=== PATIENT | female | born 1945 | race Caucasian/White ===

== ENCOUNTER 2016-08-14 11:35 | Outpatient (CLI) | payer MEDICARE | END 2016-08-14 11:36 | disposition home or self-care (01) | DX: R60.9 Edema, unspecified (principal) ==

== ENCOUNTER 2016-08-23 14:26 | Outpatient (CLI) | payer MEDICARE | END 2016-08-23 23:59 | DX: N28.9 Disorder of kidney and ureter, unspecified (principal); I50.9 Heart failure, unspecified; D75.1 Secondary polycythemia ==

== ENCOUNTER 2016-09-27 09:38 | Outpatient (CLI) | payer MEDICARE | END 2016-09-27 09:39 | disposition home or self-care (01) | DX: I27.2 Other secondary pulmonary hypertension (principal); N28.9 Disorder of kidney and ureter, unspecified ==

== ENCOUNTER 2016-10-04 09:19 | Outpatient (CLI) | payer MEDICARE | END 2016-10-04 09:20 | disposition home or self-care (01) | DX: R73.9 Hyperglycemia, unspecified (principal) ==

== ENCOUNTER 2016-10-06 07:26 | Outpatient (CLI) | payer MEDICARE | END 2016-10-06 07:27 | disposition critical access hospital (66) | DX: R46.4 Slowness and poor responsiveness (principal); R13.10 Dysphagia, unspecified; R06.00 Dyspnea, unspecified; R29.810 Facial weakness; R47.81 Slurred speech | CPT/HCPCS: A0170; A0425; A0427 ==